=== PATIENT | male | born 1975 | race Caucasian/White ===

== ENCOUNTER 2017-02-14 18:13 | Observation (INO) | payer BC ==
[~2017-02-14] VITALS: Ht 170.2 cm; Wt 70.6 kg
[~2017-02-14 18:13] MED LIST: FLON0.053; MINO50TA PO; PROM25SU8 PO
[2017-02-14 18:45] VITALS: BP 130/86; PULSE 72; RESP 16; TEMP 98.3; O2SAT 99
[2017-02-14] MEDS ORDERED: MORPHINE SULFATE 4 MG/ML INJ IV PUSH ONE ×2 (19:00→20:45)
[2017-02-14] MEDS ORDERED: ONDANSETRON HCL 4 MG/2 ML VIAL IV PUSH ONE (19:00)
--- NOTE | 2017-02-14 19:00 | PD ---
HPI . Low back pain Chief Complaint: Fall Time Seen by Provider: 18:50 Travel History International Travel<30 days: No Contact w/Intl Traveler<30days: No History of Present Illness HPI This patient presents by EVAC status post a fall. He was helping someone move a refrigerator. He was walking backwards and inadvertently got his heel caught on the threshold of the door. This caused him to fall backwards. He had the immediate onset of low back pain. He denies any numbness or tingling of his lower extremities. The pain is severe. It has been constant since the injury. He denies neck pain but is complaining with some tingling in the left fourth and fifth fingers. Pain seems to be exacerbated by the backboard. PFSH Past Medical History Diminished Hearing: No Integumentary: Yes (SCALP ISSUES) Social History Alcohol Use: Yes (occasional) Tobacco Use: No Substance Use: No Allergies-Medications (Allergen,Severity, Reaction): Coded Allergies: No Known Allergies (Verified , 03/04/12) Reported Meds & Prescriptions Reported Meds & Active Scripts Active Phenergan (Promethazine HCl) 25 Mg Tab 25 Mg PO Q6HPRN FOR NAUSEA/VOMITING Reported Minocycline Hcl (Minocycline HCl) 50 Mg Tab 50 Mg PO DIRECTED Flonase (Fluticasone Propionate) 0.05 % Naspr 2 Spr NA DAILY 2 SPRAYS EACH NOSTRIL Review of Systems Except as stated in HPI: all other systems reviewed are Neg Musculoskeletal: Positive: Pain (low back pain) Neurologic: Positive: Paresthesia (fingers of the left hand) Physical Exam Narrative GENERAL: The patient is lucid. He looks like he is uncomfortable. SKIN: Warm and dry. Good color. Intact. HEAD: Normocephalic/atraumatic. EYES: Pupils are equal. Extraocular movements are intact. ENT: Mucous membranes are moist. NECK: Trachea is midline. There is no C-spine tenderness. CARDIOVASCULAR: Regular rate and rhythm. RESPIRATORY: Nonlabored respirations. MUSCULOSKELETAL: Low back tenderness at about the belt line. Step-off palpated. NEUROLOGICAL: He has normal movement, strength and sensation of his legs. He is ANO 3. No cranial nerve deficits. PSYCHIATRIC: Appropriate mood and affect. Data Data Last Documented VS Vital Signs Date Time Temp Pulse Resp B/P (MAP) Pulse Ox O2 Delivery O2 Flow Rate FiO2 02/14/17 18:45 98.3 72 16 130/86 (101) 99 Orders Orders Morphine Inj (Morphine Inj) (02/14/17 19:00) Ondansetron Inj (Zofran Inj) (02/14/17 19:00) ^ Saline Lock (02/14/17 18:53) Ct Cerv Spine W/O Contrast (02/14/17 18:53) Ct Lumb Spine W/O Contrast (02/14/17 18:53) MDM Medical Decision Making Medical Screen Exam Complete: Yes Emergency Medical Condition: Yes Differential Diagnosis Differential diagnosis of back injury includes but is not limited to contusion, muscle strain, ligamentous strain, compression fracture, spinous process fracture Narrative Course This patient presents status post a fall with an injury to his back. I have cleared him from the backboard. I have ordered a CT of his C-spine because of the tingling in his left fingers. I have ordered a CT of his L- spine because of his back pain. He has been given morphine and Zofran for pain. One of the oncoming physicians or APPs will follow-up on his radiographic studies. Diagnosis Primary Impression: Lower back injury Qualified Codes: S39.92XA - Unspecified injury of lower back, initial encounter Patient Instructions: Narcotic given in the ED Condition: Stable Fabiola Oconnor MD Feb 14, 2017 19:00
[2017-02-14] MEDS ORDERED: MINO50CA PO (19:09)
--- NOTE | 2017-02-14 19:55 | RADRPT ---
EXAM DATE/TIME: 02/14/2017 19:11 [facility] COMPARISON: No previous studies available for comparison. INDICATIONS : Trauma, fall. Neck pain RADIATION DOSE: 28.09 CTDIvol (mGy) MEDICAL HISTORY : None SURGICAL HISTORY : None. ENCOUNTER: Initial ACUITY: 1 day PAIN SCALE: 10/10 LOCATION: neck TECHNIQUE: Volumetric scanning of the cervical spine was performed. Multiplanar reconstructions in the sagittal, coronal and oblique axial planes were performed. Using automated exposure control and adjustment o f the mA and/or kV according to patient size, radiation dose was kept as low as reasonably achievable to obtain optimal diagnostic quality images. DICOM format image data is available electronically f or review and comparison. FINDINGS: VERTEBRAE: Normal vertebral body height. ALIGNMENT: No evidence of subluxation. C2-C3: The bony spinal canal is normal in size. No evidence of disc bulge or herniation. The neural forami na are bilaterally patent. C3-C4: A minimal broad based disc bulge. No central canal stenosis or abutment of the cord. Neural foramina are patent bilaterally. C4-C5: A minimal central bulge. No abutment of the cord or central canal stenosis. Neural foramina are paten t bilaterally. C5-C6: The bony spinal canal is normal in size. No evidence of disc bulge or herniation. The neural forami na are bilaterally patent. C6-C7: The bony spinal canal is normal in size. No evidence of disc bulge or herniation. The neural forami na are bilaterally patent. C7-T1: The bony spinal canal is normal in size. No evidence of disc bulge or herniation. The neural forami na are bilaterally patent. CONCLUSION: 1. No fracture or dislocation. 2. Mild degenerative changes. Shon Amanda Jr., MD on February 14, 2017 at 19:52 Board Certified Radiologist. This report was verified electronically.
--- NOTE | 2017-02-14 19:59 | RADRPT ---
EXAM DATE/TIME: 02/14/2017 19:14 [facility] COMPARISON: No previous studies available for comparison. INDICATIONS : Trauma, fall. Lower back pain. RADIATION DOSE: 25.4 CTDIvol (mGy) MEDICAL HISTORY : None SURGICAL HISTORY : None. ENCOUNTER: Initial ACUITY: 1 day PAIN SCALE: 10/10 LOCATION: Lumbar TECHNIQUE: Volumetric scanning of the lumbar spine was performed. Multiplanar reconstructions in the sagittal, coronal and oblique axial planes were performed. Using automated exposure control and adjustment of the mA and/or kV according to patient size, radiation dose was kept as low as reasonably achievable t o obtain optimal diagnostic quality images. DICOM format image data is available electronically for review and comparison. FINDINGS: VERTEBRAE: There is an acute superior endplate compression deformity involving L4. There is 50% loss of height w ith no minimal retropulsion of the posterior cortical margin. The retropulsion measures 3-4 mm. No in volvement of the pedicles observed. The inferior endplate appears intact. Remaining vertebral body he ights are maintained. ALIGNMENT: No evidence of subluxation. T12-L1: The thecal sac has a normal diameter. No evidence of disc bulge or protrusion. The neural foramina are patent bilaterally. L1-L2: The thecal sac has a normal diameter. No evidence of disc bulge or protrusion. The neural foramina are patent bilaterally. L2-L3: The thecal sac has a normal diameter. No evidence of disc bulge or protrusion. The neural foramina are patent bilaterally. L3-L4: There is a broad-based disc bulge eccentric to the right which narrows the right lateral recess. Cent ral canal is minimally narrowed. Neural foramina are patent bilaterally. L4-L5: There is a broad-based disc bulge eccentric to the left and narrows the left lateral recess. Right la teral recess, central canal, and neural foramen are patent. Mild ligamentum flavum hypertrophy of the facets. L5-S1: There is a mild broad-based disc bulge. Central canal and lateral recesses, and neural foramen are pa tent. CONCLUSION: 1. Acute compression fracture involving the superior endplate of L4 with minimal retropulsion. No ped icle involvement. Shon Amanda Jr., MD on February 14, 2017 at 19:55 Board Certified Radiologist. This report was verified electronically.
[2017-02-14 20:27] VITALS: BP 116/77; PULSE 89; RESP 16; O2SAT 99
--- NOTE | 2017-02-14 21:08 | PD ---
Physical Exam Date Seen by Provider: Feb 14, 2017 Time Seen by Provider: 21:03 Data Data Last Documented VS Vital Signs Date Time Temp Pulse Resp B/P (MAP) Pulse Ox O2 Delivery O2 Flow Rate FiO2 02/14/17 20:27 89 16 116/77 (90) 99 Room Air 02/14/17 18:45 98.3 Orders Orders Morphine Inj (Morphine Inj) (02/14/17 19:00) Ondansetron Inj (Zofran Inj) (02/14/17 19:00) ^ Saline Lock (02/14/17 18:53) Ct Cerv Spine W/O Contrast (02/14/17 18:53) Ct Lumb Spine W/O Contrast (02/14/17 18:53) Complete Blood Count With Diff (02/14/17 20:42) Comprehensive Metabolic Panel (02/14/17 20:42) Prothrombin Time / Inr (Pt) (02/14/17 20:42) Morphine Inj (Morphine Inj) (02/14/17 20:45) Admit Order (Ed Use Only) (02/14/17 ) Labs Laboratory Tests Test 02/14/17 20:25 White Blood Count 13.6 TH/MM3 Red Blood Count 4.71 MIL/MM3 Hemoglobin 15.2 GM/DL Hematocrit 43.1 % Mean Corpuscular Volume 91.5 FL Mean Corpuscular Hemoglobin 32.3 PG Mean Corpuscular Hemoglobin Concent 35.3 % Red Cell Distribution Width 13.6 % Platelet Count 163 TH/MM3 Mean Platelet Volume 7.2 FL Neutrophils (%) (Auto) 89.4 % Lymphocytes (%) (Auto) 6.2 % Monocytes (%) (Auto) 4.2 % Eosinophils (%) (Auto) 0.1 % Basophils (%) (Auto) 0.1 % Neutrophils # (Auto) 12.1 TH/MM3 Lymphocytes # (Auto) 0.8 TH/MM3 Monocytes # (Auto) 0.6 TH/MM3 Eosinophils # (Auto) 0.0 TH/MM3 Basophils # (Auto) 0.0 TH/MM3 CBC Comment DIFF FINAL Differential Comment Prothrombin Time 10.8 SEC Prothromb Time International Ratio 1.0 RATIO Blood Urea Nitrogen 25 MG/DL Creatinine 0.99 MG/DL Random Glucose 99 MG/DL Total Protein 6.8 GM/DL Albumin 4.3 GM/DL Calcium Level 9.0 MG/DL Alkaline Phosphatase 76 U/L Aspartate Amino Transf (AST/SGOT) 31 U/L Alanine Aminotransferase (ALT/SGPT) 33 U/L Total Bilirubin 1.0 MG/DL Sodium Level 138 MEQ/L Potassium Level 3.9 MEQ/L Chloride Level 103 MEQ/L Carbon Dioxide Level 25.6 MEQ/L Anion Gap 9 MEQ/L Estimat Glomerular Filtration Rate 84 ML/MIN MDM Supervised Visit with EDWARDO: No Interpretation(s) L4 compression superior end plate fracture mild retropulsion of posterior fragment into the canal Differential Diagnosis Back contusion versus fracture versus transverse fracture versus vertebral body fracture versus muscle strain versus muscle spasm Narrative Course Pt signed ouit to Me by Dr Oconnor I spoke to Dr HARRIS after I spoke to Dr Nieto he will consult and STEVEN accepts admission , CT shows a L4 compression fracture with Mild retropulsion into the canal but no symptoms at this time of cord compression. no leg weakness no bowel or bladder incontinence Diagnosis Primary Impression: Fracture of spine, lumbar, without spinal cord injury, closed Qualified Codes: S32.009A - Unspecified fracture of unspecified lumbar vertebra, initial encounter for closed fracture Admitting Information Admitting Physician Requests: Admit Patient Instructions: Narcotic given in the ED Scripts Walker with Front Wheels (Walker with Front Wheels) 1 Mis Mis EA .ROUTE DIRECTED, #1 0 Refills Prov: Korina Cartagena 02/15/17 Hydrocodone-Acetaminophen (Vicodin Hp) 10-300 Tab 1 TAB PO Q6H Y for PAIN, #30 TAB 0 Refills Prov: Ludwig Schuster MD 02/15/17 Condition: Stable George Aguero MD Feb 14, 2017 21:08
[2017-02-14] MEDS ORDERED: ONDANSETRON HCL 4 MG/2 ML VIAL IVP PRN (21:15)
[2017-02-14] MEDS ORDERED: SODIUM CHLORIDE 0.9% FLUSH 10 ML FLUSH IV FLUSH PRN (21:15)
[2017-02-14] MEDS ORDERED: NALOXONE HCL 0.4 MG/ML AMP IV PUSH PRN (21:15)
[2017-02-14 21:31] LABS: AUTOMATED NEUTROPHIL # 12.1 TH/MM3 (1.8-7.7); BASOPHIL % 0.1 % (0.0-2.0); EOSINOPHIL % 0.1 % (0.0-4.0); HEMATOCRIT 43.1 % (39.0-51.0); HEMO FLAGS DIFF FINAL; LYMPH % 6.2 % (9.0-44.0); LYMPHOCYTE # 0.8 TH/MM3 (1.0-4.8); MEAN CELL VOLUME 91.5 FL (80.0-100.0); MEAN CORPUSCULAR HEMOGLOBIN 32.3 PG (27.0-34.0); MEAN CORPUSCULAR HGB CONC 35.3 % (32.0-36.0); MONO % 4.2 % (0.0-8.0); NEUT % 89.4 % (16.0-70.0); PLATELET COUNT 163 TH/MM3 (150-450); RED BLOOD COUNT 4.71 MIL/MM3 (4.50-5.90); RED CELL DISTRIBUTION WIDTH 13.6 % (11.6-17.2); WHITE BLOOD COUNT 13.6 TH/MM3 (4.0-11.0)
[2017-02-14 21:32] LABS: PROTHROMBIN TIME - PATIENT 10.8 SEC (9.8-11.6)
[2017-02-14 21:41] LABS: ANION GAP 9 MEQ/L (5-15); AST (GOT) 31 U/L (15-37); BICARBONATE 25.6 MEQ/L (21.0-32.0); BLOOD UREA NITROGEN 25 MG/DL (7-18); CHLORIDE 103 MEQ/L (98-107); GLOMERULAR FILTRATION RATE 84 ML/MIN (>89); POTASSIUM 3.9 MEQ/L (3.5-5.1); SODIUM (NA) 138 MEQ/L (136-145)
[2017-02-14 21:45] LABS: ALKALINE PHOSPHATASE 76 U/L (45-117); ALT (GPT) 33 U/L (12-78)
[2017-02-14] MEDS: MORPHINE SULFATE 2 MG/ML INJ IV PUSH PRN (23:08)
[2017-02-14 23:17] VITALS: BP 112/65; PULSE 94; RESP 19; TEMP 98.6; O2SAT 97
[2017-02-15] VITALS (11 sets, daily range): BP systolic 108–123; BP diastolic 58–74; PULSE 68–101; RESP 14–18; TEMP 98.1–99.1; O2SAT 94–98
[2017-02-15] MEDS: MORPHINE SULFATE 2 MG/ML INJ IV PUSH PRN ×5 (02:01→23:55)
[2017-02-15] MEDS ORDERED: SENNOSIDES 8.6 MG TAB PO PRN (06:00)
[2017-02-15] MEDS ORDERED: BISACODYL 10 MG SUPP RECTAL PRN (06:00)
[2017-02-15] MEDS ORDERED: MAGNESIUM HYDROXIDE SUSP 30 ML CUP PO PRN (06:00)
[2017-02-15] MEDS ORDERED: LACTULOSE SYRUP 20 GM/30 ML CUP PO PRN (06:00)
[2017-02-15] MEDS ORDERED: ONDANSETRON HCL 4 MG/2 ML VIAL IVP PRN (06:00)
[2017-02-15] MEDS ORDERED: ACETAMINOPHEN 325 MG TAB PO PRN ×2 (06:00)
[2017-02-15 06:53] LABS: AUTOMATED NEUTROPHIL # 5.6 TH/MM3 (1.8-7.7); BASOPHIL % 0.1 % (0.0-2.0); EOSINOPHIL % 0.2 % (0.0-4.0); HEMATOCRIT 38.9 % (39.0-51.0); LYMPH % 17.9 % (9.0-44.0); LYMPHOCYTE # 1.3 TH/MM3 (1.0-4.8); MEAN CELL VOLUME 91.7 FL (80.0-100.0); MEAN CORPUSCULAR HEMOGLOBIN 33.2 PG (27.0-34.0); MONO % 7.3 % (0.0-8.0); NEUT % 74.5 % (16.0-70.0); PLATELET COUNT 161 TH/MM3 (150-450); RED BLOOD COUNT 4.24 MIL/MM3 (4.50-5.90); RED CELL DISTRIBUTION WIDTH 13.7 % (11.6-17.2); WHITE BLOOD COUNT 7.5 TH/MM3 (4.0-11.0)
[2017-02-15 07:02] LABS: HEMO FLAGS AUTO DIFF; MEAN CORPUSCULAR HGB CONC 36.2 % (32.0-36.0)
[2017-02-15 07:21] LABS: BICARBONATE 27.5 MEQ/L (21.0-32.0); POTASSIUM 3.9 MEQ/L (3.5-5.1)
[2017-02-15] MEDS: DOCUSATE SODIUM 50 MG/SENNA 8.6 MG TAB PO SCH ×2 (08:14→21:00)
[2017-02-15] MEDS: SODIUM CHLOR 0.9% 1000 ML INJ 1,000 ML IV SCH ×2 (08:18→20:06)
[2017-02-15 08:23] LABS: SCAN/DIFF AUTO DIFF CONFIRMED
[2017-02-15] MEDS: SODIUM CHLORIDE 0.9% FLUSH 10 ML FLUSH IV FLUSH SCH ×2 (09:00→21:00)
--- NOTE | 2017-02-15 09:12 | PD.CONS ---
History of Present Illness Service Neurosurgery Consult Requested By Medicine service Reason for Consult L4 fracture Primary Care Physician Trish King MD Diagnoses: History of Present Illness 5-year-old male states that he was helping move a refrigerator on 02/14/2017 when he fell backwards. She experienced immediate rather severe low back pain. He did not notice any pain digits or numbness in the lower extremities that did have some discomfort across the right and left groin-upper thigh region. He subsequently has noticed numbness and paresthesias in the fourth and fifth digits of the left hand which are a little better today. He has had mild problems with urinary hesitancy but no definite incontinence. No significant neck or thoracic region pain. He continues to have significant central low back. He has not tried to ambulate since initial injury. Review of Systems Constitutional: DENIES: Fever Eyes: DENIES: Blurred vision Ears, nose, mouth, throat: DENIES: Vertigo Respiratory: DENIES: Shortness of breath Cardiovascular: DENIES: Chest pain Gastrointestinal: DENIES: Abdominal pain, Nausea Musculoskeletal: COMPLAINS OF: Back pain Hematologic/lymphatic: DENIES: Bruising Neurologic: DENIES: Headache Psychiatric: DENIES: Confusion Past Family Social History Allergies: Coded Allergies: No Known Allergies (Verified Allergy, Unknown, 02/14/17) Past Medical History No history of significant cardiac, pulmonary, gastrointestinal disease, diabetes Past Surgical History No major surgeries reported Reported Medications Reported Meds & Active Scripts Active Reported Minocycline (Minocycline HCl) 50 Mg Cap 50 Mg PO BID Social History Does not smoke cigarettes or drink significant amount of alcohol Physical Exam Vital Signs Vital Signs Date Time Temp Pulse Resp B/P (MAP) Pulse Ox O2 Delivery O2 Flow Rate FiO2 02/15/17 05:00 18 02/15/17 03:29 98.1 101 18 108/58 (75) 95 02/14/17 23:17 98.6 94 19 112/65 (81) 97 02/14/17 22:05 02/14/17 20:27 89 16 116/77 (90) 99 Room Air 02/14/17 18:45 98.3 72 16 130/86 (101) 99 Physical Exam GENERAL: This is a well-nourished, well-developed patient, in no apparent distress. SKIN: No rashes, ecchymoses or lesions. Cool and dry. HEAD: Atraumatic. Normocephalic. No temporal or scalp tenderness. EYES: Sclerae are clear and nonicteric ENT: No facial edema or ecchymosis NECK: No significant neck tenderness or limited range of motion CARDIOVASCULAR: Heart rate regular RESPIRATORY: Clear and nonlabored GASTROINTESTINAL: Abdomen soft, non-tender MUSCULOSKELETAL: No extremity edema or cyanosis NEUROLOGICAL: Awake and alert oriented conversant and appropriate Speech is clear Follows commands well Recent and remote memory are intact Reasonable judgment and insight No evidence of anxiety or depression Extraocular movements intact Facial motor movements symmetric Sensation moderately diminished light touch fourth and fifth digits left hand Strength within normal limits throughout the upper and lower extremity major flexion and extension groups, hand intrinsics, abductor digiti quinti minimi, inversion and eversion of the foot Narinder's response absent bilateral No ankle clonus Plantar responses are mildly flexor Laboratory Laboratory Tests Test 02/14/17 20:25 02/15/17 05:43 White Blood Count 13.6 7.5 Red Blood Count 4.71 4.24 Hemoglobin 15.2 14.1 Hematocrit 43.1 38.9 Mean Corpuscular Volume 91.5 91.7 Mean Corpuscular Hemoglobin 32.3 33.2 Mean Corpuscular Hemoglobin Concent 35.3 36.2 Red Cell Distribution Width 13.6 13.7 Platelet Count 163 161 Mean Platelet Volume 7.2 7.0 Neutrophils (%) (Auto) 89.4 74.5 Lymphocytes (%) (Auto) 6.2 17.9 Monocytes (%) (Auto) 4.2 7.3 Eosinophils (%) (Auto) 0.1 0.2 Basophils (%) (Auto) 0.1 0.1 Neutrophils # (Auto) 12.1 5.6 Lymphocytes # (Auto) 0.8 1.3 Monocytes # (Auto) 0.6 0.5 Eosinophils # (Auto) 0.0 0.0 Basophils # (Auto) 0.0 0.0 CBC Comment DIFF FINAL AUTO DIFF Differential Comment AUTO DIFF CONFIRMED Prothrombin Time 10.8 Prothromb Time International Ratio 1.0 Blood Urea Nitrogen 25 20 Creatinine 0.99 1.09 Random Glucose 99 110 Total Protein 6.8 Albumin 4.3 Calcium Level 9.0 8.7 Alkaline Phosphatase 76 Aspartate Amino Transf (AST/SGOT) 31 Alanine Aminotransferase (ALT/SGPT) 33 Total Bilirubin 1.0 Sodium Level 138 142 Potassium Level 3.9 3.9 Chloride Level 103 105 Carbon Dioxide Level 25.6 27.5 Anion Gap 9 10 Estimat Glomerular Filtration Rate 84 75 Result Diagram: 02/15/17 0543 02/15/17 0543 Imaging 02/14/2017 cervical and lumbar spine images are not reviewed. There is an approximately 30% central L4 compression fracture with 4 mm retropulsion of the central posterior superior L4 vertebral body with mild canal compromise. No significant kyphotic curvature. The posterior elements appear intact No definite disruption of the facets or interspinous ligament or ligamentum flavum. There may be disruption of the annulus or posterior longitudinal ligament, which may be better evaluated on MRI. Although there is a burst-type pattern with disruption of the central anterior and posterior superior vertebral body, the lateral borders of the mid to posterior vertebral body are intact, and there is no disruption of the pedicle or base of the pedicle at the vertebral body. There is no widening of the pedicles on coronal image. Lumbar Spine CT 02/14/171852 Signed Impressions: Service Date/Time: Tuesday, February 14, 2017 19:14 - CONCLUSION: 1. Acute compression fracture involving the superior endplate of L4 with minimal retropulsion. No pedicle involvement. Shon Amanda Jr., MD Cervical Spine CT 02/14/171852 Signed Impressions: Service Date/Time: Tuesday, February 14, 2017 19:11 - CONCLUSION: 1. No fracture or dislocation. 2. Mild degenerative changes. Shon Amanda Jr., MD Assessment and Plan Assessment and Plan Impression: 1. L4 compression fracture with mild retropulsion. No significant kyphotic deformity. No focal neurologic deficit. No definite involvement of the posterior ligamentous complex. Although there is a burst-type pattern with disruption of the central anterior and posterior superior vertebral body, the lateral borders of the mid to posterior vertebral body are intact, and there is no disruption of the pedicle or base of the pedicle at the vertebral body. There is no widening of the pedicles on coronal image. This fracture appears to represent a TL ICS classification 2, however an MRI will be obtained to more accurately determine the integrity of the annulus and posterior ligamentous complex. 2. Left hand sensory loss. Probable mild ulnar neuropathy. Assessment possible C8 radiculopathy. Plan: Findings were discussed in detail with the patient and his in the emergency room. Options of conservative treatment versus surgical intervention. The L4 fracture have been discussed along with gross incontinence and prognosis of each. An MRI of the lumbar spine will be obtained to better assess the annular and facet-ligament integrity, as well as to assess for possible epidural hematoma which is questionably seen on CT scan imaging. An MRI of the cervical spine will also be obtained to assess for possible left C8 nerve compression. He may be mobilized in a brace. 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 I advised him that he will need to avoid reaching bending and heavy lifting for the next 3 months regardless of treatment. The risk of progression of the fracture has been discussed with the patient. He will be placed on muscle relaxant and pain medication. He may benefit from a short course of Toradol , however this will be held until MRI completion to assess for epidural hematoma. If the MRI does not reveal significant disruption at the posterior ligamentous complex, then he should be able to be managed with conservative treatment in a brace. However his desire to return back to work as soon as possible may place him at increased risk for progression of the fracture and may warrant at least temporary internal fixation. Hakan Nieto MD Feb 15, 2017 09:12
[2017-02-15] MEDS ORDERED: HYDR-3115 PO (11:00)
[2017-02-15] MEDS ORDERED: WALKER WHEELS/F1 MIS (11:39)
[2017-02-15] MEDS: ACETAMINOPHEN/HYDROcodone 325 MG/10 MG TAB PO PRN ×3 (11:40→21:09)
--- NOTE | 2017-02-15 11:41 | HHI.HP ---
HPI Service [facility] Hospitalists Primary Care Physician Trish King MD Admission Diagnosis lumbral fracture L4 Diagnoses: Chief Complaint: Back pain s/p fall Travel History International Travel<30 Days: No Contact w/Intl Traveler <30 Da: No Traveled to Known Affected Are: No History of Present Illness Written by Korina Cartagena, acting as scribe for Dr. Schuster on 02/15/17 at 11: 27. This note was transcribed by scribe Korina Cartagena. I, Dr. Ludwig Schuster personally performed the history, physical exam, and medical decision making; and confirmed the accuracy of the information in the transcribed note. Authenticated by Dr. Ludwig Schuster on 02/15/17 at 11:42. This is a 41-year-old male without any significant past medical history who presents to [facility] ED with complaints of severe back pain 1 day. Patient reports he was walking backwards moving a washer when he tripped and fell landing on his buttocks onto the driveway. He immediately he began experiencing a severe sharp 20 out of 10 constant central back pain. He denies any head or neck injury. He does endorse improving numbness in the fourth and fifth digits of the left hand since the fall. He denies any numbness or tingling in the bilateral lower extremities. He also states that he's had urinary hesitancy and loss of sensation with urination but denies any definite incontinence. In the ED, CT lumbar spine was obtained which revealed acute compression fracture involving the superior endplate of L4 with minimal retropulsion. CT of the cervical spine was obtained which showed no fracture dislocation. Patient has already been evaluated by Dr. Nieto of neurosurgery who was ordered MRIs of both cervical and lumbar spine has discussed the possibility of surgical intervention versus conservative management. Review of Systems Except as stated in HPI: all other systems reviewed are Neg Past Family Social History Past Medical History Patient denies any previous PMHX Past Surgical History Nasal surgery Reported Medications Minocycline (Minocycline HCl) 50 Mg Cap 50 Mg PO BID Allergies: Coded Allergies: No Known Allergies (Verified Allergy, Unknown, 02/14/17) Active Ordered Medications Current Medications Medications (Trade) Dose Ordered Sig/Jackson Route Start Time Stop Time Status Last Admin (NS Flush) 2 ml UNSCH PRN IV FLUSH 02/14/17 21:15 (NS Flush) 2 ml BID IV FLUSH 02/15/17 09:00 (Narcan Inj) 0.4 mg UNSCH PRN IV PUSH 02/14/17 21:15 (Morphine Inj) 2 mg Q3H PRN IV PUSH 02/14/17 21:15 02/15/17 08:14 Sodium Chloride 1,000 ml @ 70 mls/hr [id number] IV 02/15/17 05:48 02/15/17 08:18 (Tylenol) 650 mg Q4H PRN PO 02/15/17 06:00 (Zofran Inj) 4 mg Q6H PRN IVP 02/15/17 06:00 (Tylenol) 650 mg Q6H PRN PO 02/15/17 06:00 ([place] 5-325 Mg) 1 tab Q4H PRN PO 02/15/17 06:00 ([place] 10-325 Mg) 1 tab Q4H PRN PO 02/15/17 06:00 (Mariann-Colace) 1 tab BID PO 02/15/17 09:00 02/15/17 08:14 (Milk Of Magnesia Liq) 30 ml Q12H PRN PO 02/15/17 06:00 (Senokot) 17.2 mg Q12H PRN PO 02/15/17 06:00 (Dulcolax Supp) 10 mg DAILY PRN RECTAL 02/15/17 06:00 (Lactulose Liq) 30 ml DAILY PRN PO 02/15/17 06:00 (Robaxin) 500 mg Q8HR PO 02/15/17 14:00 Family History Brother- , PE Father - BLE DVTs Social History Patient denies any tobacco use. Patient reports occasional alcohol use. 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 Physical Exam Vital Signs Vital Signs Date Time Temp Pulse Resp B/P (MAP) Pulse Ox O2 Delivery O2 Flow Rate FiO2 02/15/17 09:01 98.5 85 16 113/72 (86) 95 02/15/17 08:00 88 02/15/17 05:00 18 02/15/17 03:29 98.1 101 18 108/58 (75) 95 02/14/17 23:17 98.6 94 19 112/65 (81) 97 02/14/17 22:05 02/14/17 20:27 89 16 116/77 (90) 99 Room Air 02/14/17 18:45 98.3 72 16 130/86 (101) 99 Physical Exam GENERAL: This is a well-nourished, well-developed patient, in obvious discomfort secondary to back pain. Awake and alert. Family is at the bedside. SKIN: No rashes, ecchymoses or lesions. Cool and dry. HEAD: Atraumatic. Normocephalic. No temporal or scalp tenderness. EYES: Pupils equal round and reactive. Extraocular motions intact. No scleral icterus. No injection or drainage. ENT: Nose without bleeding or purulent drainage. Throat without erythema, tonsillar hypertrophy or exudate. Uvula midline. Airway patent. NECK: Trachea midline. No lymphadenopathy. Supple, nontender, no meningeal signs. CARDIOVASCULAR: Regular rate and rhythm without murmurs, gallops, or rubs. RESPIRATORY: Clear to auscultation. Breath sounds equal bilaterally. No wheezes , rales, or rhonchi. GASTROINTESTINAL: Abdomen soft, non-tender, nondistended. No hepato-splenomegaly , or palpable masses. No guarding. MUSCULOSKELETAL: Extremities without clubbing, cyanosis, or edema. No joint tenderness, effusion, or edema noted. No calf tenderness. NEUROLOGICAL: Awake and alert. Cranial nerves II through XII intact. Motor and sensory grossly within normal limits except for subjective numbness over the 4th and 5th digits of the left hand. Five out of 5 muscle strength in all muscle groups. Normal speech. Laboratory Laboratory Tests Test 02/14/17 20:25 02/15/17 05:43 White Blood Count 13.6 7.5 Red Blood Count 4.71 4.24 Hemoglobin 15.2 14.1 Hematocrit 43.1 38.9 Mean Corpuscular Volume 91.5 91.7 Mean Corpuscular Hemoglobin 32.3 33.2 Mean Corpuscular Hemoglobin Concent 35.3 36.2 Red Cell Distribution Width 13.6 13.7 Platelet Count 163 161 Mean Platelet Volume 7.2 7.0 Neutrophils (%) (Auto) 89.4 74.5 Lymphocytes (%) (Auto) 6.2 17.9 Monocytes (%) (Auto) 4.2 7.3 Eosinophils (%) (Auto) 0.1 0.2 Basophils (%) (Auto) 0.1 0.1 Neutrophils # (Auto) 12.1 5.6 Lymphocytes # (Auto) 0.8 1.3 Monocytes # (Auto) 0.6 0.5 Eosinophils # (Auto) 0.0 0.0 Basophils # (Auto) 0.0 0.0 CBC Comment DIFF FINAL AUTO DIFF Differential Comment AUTO DIFF CONFIRMED Prothrombin Time 10.8 Prothromb Time International Ratio 1.0 Blood Urea Nitrogen 25 20 Creatinine 0.99 1.09 Random Glucose 99 110 Total Protein 6.8 Albumin 4.3 Calcium Level 9.0 8.7 Alkaline Phosphatase 76 Aspartate Amino Transf (AST/SGOT) 31 Alanine Aminotransferase (ALT/SGPT) 33 Total Bilirubin 1.0 Sodium Level 138 142 Potassium Level 3.9 3.9 Chloride Level 103 105 Carbon Dioxide Level 25.6 27.5 Anion Gap 9 10 Estimat Glomerular Filtration Rate 84 75 25-Hydroxy Vitamin D Total 28.9 Result Diagram: 02/15/1743 02/15/17542 Imaging Last Impressions Lumbar Spine CT 02/14/171852 Signed Impressions: Service Date/Time: Tuesday, February 14, 2017 19:14 - CONCLUSION: 1. Acute compression fracture involving the superior endplate of L4 with minimal retropulsion. No pedicle involvement. Shon Amanda Jr., MD Cervical Spine CT 02/14/171852 Signed Impressions: Service Date/Time: Tuesday, February 14, 2017 19:11 - CONCLUSION: 1. No fracture or dislocation. 2. Mild degenerative changes. Shon Amanda Jr., MD Caprini VTE Risk Assessment Caprini VTE Risk Assessment: No/Low Risk (score <= 1) Caprini Risk Assessment Model Point Value = 1 Point Value = 2 Point Value = 3 Point Value = 5 Age 41-60 Minor surgery BMI > 25 kg/m2 Swollen legs Varicose veins or History of unexplained or recurrent spontaneous Oral contraceptives or hormone replacement Sepsis (< 1 month) Serious lung disease, including pneumonia (< 1 month) Abnormal pulmonary function Acute myocardial infarction Congestive heart failure (< 1 month) History of inflammatory bowel disease Medical patient at bed rest Age 61-74 Arthroscopic surgery Major open surgery (> 45 min) Laparoscopic surgery (> 45 min) Malignancy Confined to bed (> 72 hours) Immobilizing plaster cast Central venous access Age >= 75 History of VTE Family history of VTE Factor V Leiden Prothrombin [id number] Lupus anticoagulant Anticardiolipin antibodies Elevated serum homocysteine Heparin-induced thrombocytopenia Other congenital or acquired thrombophilia Stroke (< 1 month) Elective arthroplasty Hip, pelvis, or leg fracture Acute spinal cord injury (< 1 month) Prophylaxis Regimen Total Risk Factor Score Risk Level Prophylaxis Regimen 0-1 Low Early ambulation 2 Moderate Order ONE of the following: *Sequential Compression Device (SCD) *Heparin 5000 units SQ BID 3-4 Higher Order ONE of the following medications: *Heparin 5000 units SQ TID *Enoxaparin/Lovenox 40 mg SQ daily (WT < 150 kg, CrCl > 30 mL/min) *Enoxaparin/Lovenox 30 mg SQ daily (WT < 150 kg, CrCl > 10-29 mL/min) *Enoxaparin/Lovenox 30 mg SQ BID (WT < 150 kg, CrCl > 30 mL/min) AND/OR *Sequential Compression Device (SCD) 5 or more Highest Order ONE of the following medications: *Heparin 5000 units SQ TID (Preferred with Epidurals) *Enoxaparin/Lovenox 40 mg SQ daily (WT < 150 kg, CrCl > 30 mL/min) *Enoxaparin/Lovenox 30 mg SQ daily (WT < 150 kg, CrCl > 10-29 mL/min) *Enoxaparin/Lovenox 30 mg SQ BID (WT < 150 kg, CrCl > 30 mL/min) AND *Sequential Compression Device (SCD) Assessment and Plan Problem List: (1) Lower back injury ICD Code: S39.92XA - Unspecified injury of lower back, initial encounter Status: Acute (2) Fracture of spine, lumbar, without spinal cord injury, closed ICD Code: S32.009A - Unspecified fracture of unspecified lumbar vertebra, initial encounter for closed fracture Status: Acute Assessment and Plan 41-year-old male without any significant past medical history who presents to [facility] ED with complaints of severe back pain 1 day. Severe back pain status post a fall with resultant L4 compression fracture - Patient evaluated by Dr. Nieto of neurosurgery, appreciate recommendations. MRI of the cervical and lumbar spine ordered and pending. TLSO ordered and needed for mobilization. - Pain management including Lortab and IV morphine with bowel regimen - Robaxin 500 mg by mouth every 8 for muscle spasms - PT eval/tx after TLSO delivered - obtain vitamin D level - Per neurosurgery recommendations, avoid reaching, bending and heavy lifting for 3 months. Possible left C8 radiculopathy - As stated above - Monitor for improvement Leukocytosis - Suspect reactive - Resolved DVT prophylaxis - bilateral SCD/RANDAL hose - Chemoprophylaxis contraindicated pending MRI results to rule out possible epidural hematoma Discussed Condition With Patient, nursing staff, family Problem Qualifiers (1) Lower back injury: Qualified Codes: S39.92XA - Unspecified injury of lower back, initial encounter Korina Cartagena Feb 15, 2017 11:41 Ludwig Schuster MD Feb 15, 2017 11:43
--- NOTE | 2017-02-15 12:27 | RADRPT ---
EXAM DATE/TIME: 02/15/2017 10:51 [facility] COMPARISON: CT CERVICAL SPINE W/O CONTRAST, February 14, 2017, 19:11. INDICATIONS : Fracture. Left C8 distribution radiculopathy. MEDICAL HISTORY : None. SURGICAL HISTORY : Deviated septum repair. ENCOUNTER: Initial ACUITY: 1 day PAIN SCORE: 5/10 LOCATION: Back. TECHNIQUE: Multiplanar, multisequence MRI examination of the cervical spine was performed. FINDINGS: VERTEBRAE: Normal vertebral body height. Homogeneous marrow signal. ALIGNMENT: No evidence of subluxation. CORD: Normal configuration and signal. POST FOSSA: The cerebellar tonsils are normal in position. C2-C3: The thecal sac has a normal configuration. There is no evidence of disc herniation or spinal canal s tenosis. The neural foramina are patent bilaterally. C3-C4: The disc is desiccated but otherwise normal. No foraminal or spinal stenosis. C4-C5: The disc is desiccated. No significant loss of height. There is bulging of the annulus and a tiny lef t paracentral annular fissure. No foraminal or spinal stenosis. C5-C6: The disc is desiccated. No significant loss of height. There is bulging of the annulus and a central to left paracentral annular fissure. No foraminal or spinal stenosis. C6-C7: The disc is desiccated and has slight loss of height. There is a small, broad posterior disc protrusi on and a right paracentral annular fissure. There is mild effacement of the anterior aspect of the th ecal sac. No cord compression or cord signal abnormality. There is minimal foraminal encroachment on the right but none on the left. C7-T1: The thecal sac has a normal configuration. There is no evidence of disc herniation or spinal canal s tenosis. The neural foramina are patent bilaterally. CONCLUSION: 1. Very mild cervical spine degenerative changes as above. 2. No significant foraminal or spinal stenosis at any level. The C7/T1 level is entirely normal. 3. Small annular fissures of the C4/C5, C5/C6 and C6/C7 discs. Alhaji Moffett MD on February 15, 2017 at 12:18 Board Certified Radiologist. This report was verified electronically.
--- NOTE | 2017-02-15 12:33 | RADRPT ---
EXAM DATE/TIME: 02/15/2017 10:51 [facility] COMPARISON: CT LUMBAR SPINE W/O CONTRAST, February 14, 2017, 19:14. INDICATIONS : Fracture. MEDICAL HISTORY : None. SURGICAL HISTORY : Corrected deviated septum. ENCOUNTER: Initial ACUITY: 1 day PAIN SCORE: 7/10 LOCATION: Back. TECHNIQUE: Multiplanar multisequence MRI of the lumbar spine was performed without contrast. FINDINGS: The most caudal appearing lumbar vertebra is numbered as L5. VERTEBRAE: Acute appearing moderate severity superior endplate compression fracture of L4. A couple millimeters of retropulsion of the posterior/superior corner of the L4 vertebral body contributing to mild spinal stenosis and bilateral L3/L4 foraminal stenosis. CONUS: Normal level and configuration. T12-L1: The thecal sac has a normal diameter. No evidence of disc bulge or protrusion. The neural foramina are patent bilaterally. L1-L2: The thecal sac has a normal diameter. No evidence of disc bulge or protrusion. The neural foramina are patent bilaterally. L2-L3: The thecal sac has a normal diameter. No evidence of disc bulge or protrusion. The neural foramina are patent bilaterally. L3-L4: The disc is within normal limits but there is an acute superior endplate fracture of L4 with associat ed mild spinal and bilateral foraminal stenosis. L4-L5: The disc is desiccated and has mild loss of height. Small, broad/diffuse disc protrusion and mild ollie ateral facet osteoarthritis present. No significant spinal stenosis. There is mild left foraminal michael nosis. L5-S1: The disc is desiccated and has mild loss of height. There is a small moderate focal right paracentral disc protrusion contacting the right S1 nerve root within the lateral recess, series 12 image 19. No foraminal stenosis. CONCLUSION: 1. Moderate severity acute L4 compression fracture with slight retropulsion. Associated mild fracture -associated spinal and bilateral L3/L4 foraminal stenosis without evidence of nerve root impingement. 2. Small, broad and probably nonacute L4/L5 disc protrusion with mild left foraminal stenosis. 3. Focal, probably nonacute right paracentral L4/L5 disc protrusion and appears to be impinging on th e transiting right S1 nerve root within the subarticular recess. Alhaji Moffett MD on February 15, 2017 at 12:26 Board Certified Radiologist. This report was verified electronically.
[2017-02-15] MEDS: METHOCARBAMOL 500 MG TAB PO SCH ×2 (14:19→21:08)
[2017-02-16] VITALS (8 sets, daily range): BP systolic 113–128; BP diastolic 75–77; PULSE 76–86; RESP 16–18; TEMP 98.3–99; O2SAT 94–98
[2017-02-16] MEDS: ACETAMINOPHEN/HYDROcodone 325 MG/10 MG TAB PO PRN (05:03)
[2017-02-16] MEDS: METHOCARBAMOL 500 MG TAB PO SCH ×3 (05:03→22:28)
[2017-02-16] MEDS: SODIUM CHLOR 0.9% 1000 ML INJ 1,000 ML IV SCH ×2 (09:00→22:29)
[2017-02-16] MEDS: ACETAMINOPHEN/HYDROcodone 325 MG/5 MG TAB PO PRN ×3 (09:08→17:08)
[2017-02-16] MEDS: SODIUM CHLORIDE 0.9% FLUSH 10 ML FLUSH IV FLUSH SCH ×2 (09:08→22:29)
[2017-02-16] MEDS: DOCUSATE SODIUM 50 MG/SENNA 8.6 MG TAB PO SCH ×2 (09:09→22:28)
--- NOTE | 2017-02-16 10:31 | HHI.PR ---
Subjective Remarks Follow-up back pain. States pain meds helping. He still undecided if he wants surgery. He has not been out of bed waiting for physical therapy. Discussed with RN Objective Vitals Vital Signs Date Time Temp Pulse Resp B/P (MAP) Pulse Ox O2 Delivery O2 Flow Rate FiO2 02/16/17 10:12 16 02/16/17 08:30 97 21 02/16/17 07:28 98.4 86 18 118/77 (91) 94 02/16/17 03:41 98.9 76 18 119/76 (90) 98 02/16/17 00:01 85 02/15/17 23:26 99.1 85 18 119/73 (88) 94 02/15/17 20:59 98 21 02/15/17 20:42 98.5 83 18 112/74 (87) 96 02/15/17 20:04 73 02/15/17 18:47 97 02/15/17 18:14 18 02/15/17 16:16 98.2 68 14 111/70 (84) 97 02/15/17 15:30 68 02/15/17 11:41 98.2 91 16 123/70 (87) 97 Result Diagram: 02/15/17 0543 02/15/17 0543 Imaging Last Impressions Lumbar Spine MRI 02/15/17 0000 Signed Impressions: Service Date/Time: February 10:51 - CONCLUSION: 1. Moderate severity acute L4 compression fracture with slight retropulsion. Associated mild fracture-associated spinal and bilateral L3/L4 foraminal stenosis without evidence of nerve root impingement. 2. Small, broad and probably nonacute L4/ L5 disc protrusion with mild left foraminal stenosis. 3. Focal, probably nonacute right paracentral L4/L5 disc protrusion and appears to be impinging on the transiting right S1 nerve root within the subarticular recess. Alhaji Moffett MD Cervical Spine MRI 02/15/17 0000 Signed Impressions: Service Date/Time: February 10:51 - CONCLUSION: 1. Very mild cervical spine degenerative changes as above. 2. No significant foraminal or spinal stenosis at any level. The C7/T1 level is entirely normal. 3. Small annular fissures of the C4/C5, C5/C6 and C6/C7 discs. Alhaji Moffett MD Lumbar Spine CT 02/14/171852 Signed Impressions: Service Date/Time: Tuesday, February 14, 2017 19:14 - CONCLUSION: 1. Acute compression fracture involving the superior endplate of L4 with minimal retropulsion. No pedicle involvement. Shon Amanda Jr., MD Cervical Spine CT 02/14/171852 Signed Impressions: Service Date/Time: Tuesday, February 14, 2017 19:11 - CONCLUSION: 1. No fracture or dislocation. 2. Mild degenerative changes. Shon Amanda Jr., MD Objective Remarks GENERAL: This is a well-nourished, well-developed patient SKIN: No rashes, ecchymoses or lesions. Cool and dry. CARDIOVASCULAR: Regular rate and rhythm without murmurs, gallops, or rubs. RESPIRATORY: Clear to auscultation. Breath sounds equal bilaterally. No wheezes , rales, or rhonchi. GASTROINTESTINAL: Abdomen soft, non-tender, nondistended. No guarding. MUSCULOSKELETAL: Extremities without clubbing, cyanosis, or edema. No joint tenderness, effusion, or edema noted. No calf tenderness. NEUROLOGICAL: Awake and alert. Cranial nerves II through XII intact. Motor and sensory grossly within normal limits except for subjective numbness over the 4th and 5th digits of the left hand. Five out of 5 muscle strength in all muscle groups. Normal speech. A/P Problem List: (1) Lower back injury ICD Code: S39.92XA - Unspecified injury of lower back, initial encounter Status: Acute (2) Fracture of spine, lumbar, without spinal cord injury, closed ICD Code: S32.009A - Unspecified fracture of unspecified lumbar vertebra, initial encounter for closed fracture Status: Acute Assessment and Plan 41-year-old male without any significant past medical history who presents to [facility] ED with complaints of severe back pain 1 day. Severe back pain status post a fall with resultant L4 compression fracture - Patient evaluated by Dr. Nieto of neurosurgery, appreciate recommendations. TLSO ordered and needed for mobilization. - Pain management including Lortab and IV morphine with bowel regimen - Robaxin 500 mg by mouth every 8 for muscle spasms - PT eval/tx after TLSO delivered - Per neurosurgery recommendations, avoid reaching, bending and heavy lifting for 3 months. Possible left C8 radiculopathy - As stated above - Monitor for improvement Leukocytosis - Suspect reactive - Resolved Vitamin D deficiency. We will replace DVT prophylaxis - bilateral SCD/RANDAL hose -Will hold pharmacological prophylaxis pending neurosurgery evaluation Problem Qualifiers (1) Lower back injury: Qualified Codes: S39.92XA - Unspecified injury of lower back, initial encounter (2) Fracture of spine, lumbar, without spinal cord injury, closed: Qualified Codes: S32.009A - Unspecified fracture of unspecified lumbar vertebra , initial encounter for closed fracture Ludwig Schuster MD Feb 16, 2017 10:31
--- NOTE | 2017-02-16 11:09 | HHI.NSPN ---
History Interval History Mr. Morales is awake and alert resting comfortably in bed. He has complaints of back pain with movement but no complaints of lower extremity radicular pain. The left upper extremity paresthesias he was complaining yesterday however resolving slowly. Exam Results Vital Signs Date Time Temp Pulse Resp B/P (MAP) Pulse Ox O2 Delivery O2 Flow Rate FiO2 02/16/17 10:12 16 02/16/17 08:30 97 21 02/16/17 07:28 98.4 86 118/77 (91) 02/14/17 20:27 Room Air Physical Examination Patient is awake and alert oriented 3. Motor function is 5 over 5 in the upper and lower extremities. Sensory intact to primary modalities. MRI of the cervical spine and lumbar spine were performed. The cervical spine shows no evidence of disc protrusion, nerve impingement or foraminal stenosis. Lumbar spine MRI shows L4 compression fracture involving the superior half of the vertebral body. There is mild bowing of the posterior wall without canal stenosis. Right paracentral disc protrusion at L5-S1 is noted. Medical Decision Making Impression and Plan Assessment: L4 compression fracture with complaints of back pain. No radicular pain. Recommendations: Treatment options including conservative treatment with external bracing versus kyphoplasty versus temporary pedicle screw fixation were discussed with the patient. He is interested in undergoing kyphoplasty. Apparently Dr. Nieto did not give him this option yesterday and he is wanting a second opinion. We'll have Dr. Keating see the patient this afternoon and give the patient his recommendations. Julio Morales MD Feb 16, 2017 11:09
[2017-02-16] MEDS ORDERED: DEXAMETHASONE SOD PHOS 4 MG/ML VIAL IV ONE (12:00)
[2017-02-16] MEDS ORDERED: LIDOCAINE HCL 1% PF 5 ML AMPULE OTHER ONE (12:00)
[2017-02-16] MEDS ORDERED: GLYCOPYRROLATE 1 MG/5 ML SYRINGE IV PUSH ONE (12:00)
[2017-02-16] MEDS ORDERED: NEOSTIGMINE 3 MG/3 ML SYR IV ONE (12:00)
[2017-02-16] MEDS ORDERED: ONDANSETRON HCL 4 MG/2 ML VIAL IV PUSH ONE (12:00)
[2017-02-16] MEDS ORDERED: MIDAZOLAM HCL 2 MG/2 ML VIAL IV ONE (12:00)
[2017-02-16] MEDS ORDERED: PROPOFOL 200 MG/20 ML AMP IV ONE (12:00)
[2017-02-16] MEDS ORDERED: ROCURONIUM INJ 50 MG/5 ML SYRINGE IV PUSH ONE (12:00)
[2017-02-16] MEDS ORDERED: CHOLECALCIFEROL (VIT D3) 5000 UNIT CAP PO ONE (16:45)
[2017-02-16] MEDS ORDERED: ceFAZolin INJ 1,000 MG VIAL ONE (18:04)
[2017-02-16] MEDS ORDERED: ACETAMINOPHEN 1000 MG/100 ML 100 ML IV ONE (18:29)
--- NOTE | 2017-02-16 19:01 | PD.OP ---
Operative Report Date of Surgery: Feb 16, 2017 Preoperative Diagnosis: (1) Fracture of spine, lumbar, without spinal cord injury, closed L4 compression fracture Postoperative Diagnosis: (1) Fracture of spine, lumbar, without spinal cord injury, closed Same Procedure: L4 kyphoplasty Anesthesia: Gen. Surgeon: Julio Morales Hammer Runner(s): - Operation and Findings: Patient was brought to the operating room and after adequate induction of general endotracheal anesthesia was placed in prone position on chest rolls and prepped and draped in usual sterile manner. Under AP and lateral fluoroscopy the L4 vertebral body was identified and appropriate entry points were determined in the right and left paraspinal regions. Stab wounds were created and trochars were introduced percutaneously through the right and left L4 pedicles into the vertebral body under continuous AP and lateral fluoroscopic control. Once the trochars were in place the curve kyphoplasty needle was inserted and a cavity was created within the L4 vertebral body. Methylmethacrylate bone cement was then instilled throughout the L4 vertebral body with excellent filling noted and no extravasation seen. The cement was allowed to harden and the trochars were then removed. Wounds were cleansed irrigation, dressed with Steri-Strips and Telfa dry gauze dressings. Sponge and needle counts are correct at the end of the case. Blood loss was minimal and there were no complications. The patient tolerated the procedure well and was transported to recovery in satisfactory condition. Julio Morales MD Feb 16, 2017 19:01
--- NOTE | 2017-02-16 19:45 | RADRPT ---
EXAM DATE/TIME: 02/16/2017 18:47 [facility] COMPARISON: No previous studies available for comparison. INDICATIONS : L4 Kyphoplasty MEDICAL HISTORY : None. SURGICAL HISTORY : None. ENCOUNTER: Initial ACUITY: 1 day PAIN SCORE: Non-responsive. LOCATION: L4 FINDINGS: 2 magnified C-arm spot views show cement augmentation involving a lower lumbar vertebral body felt to be L4. The cement is contained within the cortical confines of the vertebral body. CONCLUSION: Limited images as detailed above. Shon Amanda Jr., MD on February 16, 2017 at 19:42 Board Certified Radiologist. This report was verified electronically.
[2017-02-16] MEDS ORDERED: DO NOT ADM ANY ANTICOAGULANT DRUGS PRN (20:00)
[2017-02-17 04:00] VITALS: BP 114/72; PULSE 78; RESP 18; TEMP 98.4; O2SAT 96
[2017-02-17] MEDS: METHOCARBAMOL 500 MG TAB PO SCH (06:26)
[2017-02-17 07:40] VITALS: BP 115/70; PULSE 63; RESP 18; TEMP 97.9; O2SAT 97
[2017-02-17] MEDS: DOCUSATE SODIUM 50 MG/SENNA 8.6 MG TAB PO SCH (08:14)
[2017-02-17] MEDS: ACETAMINOPHEN/HYDROcodone 325 MG/10 MG TAB PO PRN (08:14)
[2017-02-17] MEDS: SODIUM CHLORIDE 0.9% FLUSH 10 ML FLUSH IV FLUSH SCH (09:00)
[2017-02-17 09:15] VITALS: RESP 16
[2017-02-17 09:39] VITALS: O2SAT 97
[2017-02-17] MEDS ORDERED: INFLUENZA VIRUS VACCINE (QUADRIVALENT) 0.5 ML SYR IM ONE (10:00)
[2017-02-17] MEDS ORDERED: METH500T3 PO (10:02)
[2017-02-17] MEDS ORDERED: HYDR-3516 PO (10:05)
--- NOTE | 2017-02-17 10:08 | HHI.NSPN ---
History Interval History Postop L4 kyphoplasty. Patient doing well. Sitting up in the bed with very little back pain this morning. He has been ambulatory without difficulties. Exam Results Vital Signs Date Time Temp Pulse Resp B/P (MAP) Pulse Ox O2 Delivery O2 Flow Rate FiO2 02/17/17 09:39 97 21 02/17/17 07:40 97.9 63 18 115/70 (85) 02/17/17 06:56 Room Air 02/16/17 20:15 2 Intake and Output 02/17/17 02/17/17 02/18/17 08:00 16:00 00:00 Intake Total 120 ml Output Total 300 ml Balance -180 ml Physical Examination Neurological examination is intact. Lumbar dressings are dry Medical Decision Making Impression and Plan Assessment: L4 compression fracture status post kyphoplasty with good relief of pain. Plan: Patient clear for discharge with LSO which has been ordered. He should follow-up with Dr. Martines in 1-2 weeks for for reevaluation. Restricted activity with only walking and mild activity until cleared by Dr. Martines. Julio Morales MD Feb 17, 2017 10:08
--- NOTE | 2017-02-17 11:51 | HHI.DCPOC ---
Discharge Care Plan Diagnosis: (1) Fracture of spine, lumbar, without spinal cord injury, closed (2) Lower back injury Your Health Problems Are: Difficulty with ADL Exercise Tolerance Goals to Promote Your Health * To prevent worsening of your condition and complications * To maintain your health at the optimal level Directions to Meet Your Goals Take your medications as prescribed Follow your dietary instruction Follow activity as directed Keep your appointments as scheduled Take your immunizations and boosters as scheduled If your symptoms worsen call your PCP, if no PCP go to Urgent Care Center or Emergency Room Smoking is Dangerous to Your Health. Avoid second hand smoke Call the 24-hour hour crisis hotline for domestic abuse at Ludwig Schuster MD Feb 17, 2017 11:51
[2017-02-17] MEDS ORDERED: CHOL1000 PO (12:00)
--- NOTE | 2017-02-17 12:00 | HHI.DS ---
Discharge Summary Admission Date Feb 14, 2017 at 21:03 Discharge Date: Feb 17, 2017 Admitting Diagnosis lumbral fracture L4 (1) Lower back injury ICD Code: S39.92XA - Unspecified injury of lower back, initial encounter Diagnosis: Principal Status: Acute (2) Fracture of spine, lumbar, without spinal cord injury, closed ICD Code: S32.009A - Unspecified fracture of unspecified lumbar vertebra, initial encounter for closed fracture Diagnosis: Principal Status: Acute Procedures Kyphoplasty Brief History - From Admission Written by Korina Cartagena, acting as scribe for Dr. Schuster on 02/15/17 at 11: 27. This note was transcribed by scribe Korina Cartagena. I, Dr. Ludwig Schuster personally performed the history, physical exam, and medical decision making; and confirmed the accuracy of the information in the transcribed note. Authenticated by Dr. Ludwig Schuster on 02/15/17 at 11:42. This is a 41-year-old male without any significant past medical history who presents to [facility] ED with complaints of severe back pain 1 day. Patient reports he was walking backwards moving a washer when he tripped and fell landing on his buttocks onto the driveway. He immediately he began experiencing a severe sharp 20 out of 10 constant central back pain. He denies any head or neck injury. He does endorse improving numbness in the fourth and fifth digits of the left hand since the fall. He denies any numbness or tingling in the bilateral lower extremities. He also states that he's had urinary hesitancy and loss of sensation with urination but denies any definite incontinence. In the ED, CT lumbar spine was obtained which revealed acute compression fracture involving the superior endplate of L4 with minimal retropulsion. CT of the cervical spine was obtained which showed no fracture dislocation. Patient has already been evaluated by Dr. Nieto of neurosurgery who was ordered MRIs of both cervical and lumbar spine has discussed the possibility of surgical intervention versus conservative management. CBC/BMP: 02/15/17 0543 02/15/17 0543 Significant Findings Laboratory Tests Test 02/14/17 20:25 02/15/17 05:43 White Blood Count 13.6 TH/MM3 (4.0-11.0) Neutrophils (%) (Auto) 89.4 % (16.0-70.0) 74.5 % (16.0-70.0) Lymphocytes (%) (Auto) 6.2 % (9.0-44.0) Neutrophils # (Auto) 12.1 TH/MM3 (1.8-7.7) Lymphocytes # (Auto) 0.8 TH/MM3 (1.0-4.8) Blood Urea Nitrogen 25 MG/DL (7-18) 20 MG/DL (7-18) Estimat Glomerular Filtration Rate 84 ML/MIN (>89) 75 ML/MIN (>89) Red Blood Count 4.24 MIL/MM3 (4.50-5.90) Hematocrit 38.9 % (39.0-51.0) Mean Corpuscular Hemoglobin Concent 36.2 % (32.0-36.0) Random Glucose 110 MG/DL (74-106) 25-Hydroxy Vitamin D Total 28.9 ng/ML (30-100) Imaging Last Impressions Lumbar Spine X-Ray 02/16/17 0000 Signed Impressions: Service Date/Time: Thursday, February 16, 2017 18:47 - CONCLUSION: Limited images as detailed above. Shon Amanda Jr., MD Lumbar Spine MRI 02/15/17 0000 Signed Impressions: Service Date/Time: February 10:51 - CONCLUSION: 1. Moderate severity acute L4 compression fracture with slight retropulsion. Associated mild fracture-associated spinal and bilateral L3/L4 foraminal stenosis without evidence of nerve root impingement. 2. Small, broad and probably nonacute L4/ L5 disc protrusion with mild left foraminal stenosis. 3. Focal, probably nonacute right paracentral L4/L5 disc protrusion and appears to be impinging on the transiting right S1 nerve root within the subarticular recess. Alhaji Moffett MD Cervical Spine MRI 02/15/17 0000 Signed Impressions: Service Date/Time: February 10:51 - CONCLUSION: 1. Very mild cervical spine degenerative changes as above. 2. No significant foraminal or spinal stenosis at any level. The C7/T1 level is entirely normal. 3. Small annular fissures of the C4/C5, C5/C6 and C6/C7 discs. Alhaji Moffett MD Lumbar Spine CT [id number] Signed Impressions: Service Date/Time: Tuesday, February 14, 2017 19:14 - CONCLUSION: 1. Acute compression fracture involving the superior endplate of L4 with minimal retropulsion. No pedicle involvement. Shon Amanda Jr., MD Cervical Spine CT [id number]/14/[id number] Signed Impressions: Service Date/Time: Tuesday, February 14, 2017 19:11 - CONCLUSION: 1. No fracture or dislocation. 2. Mild degenerative changes. Shon Amanda Jr., MD PE at Discharge GENERAL: This is a well-nourished, well-developed patient SKIN: No rashes, ecchymoses or lesions. Cool and dry. CARDIOVASCULAR: Regular rate and rhythm without murmurs, gallops, or rubs. RESPIRATORY: Clear to auscultation. Breath sounds equal bilaterally. No wheezes , rales, or rhonchi. GASTROINTESTINAL: Abdomen soft, non-tender, nondistended. No guarding. MUSCULOSKELETAL: Extremities without clubbing, cyanosis, or edema. No joint tenderness, effusion, or edema noted. No calf tenderness. NEUROLOGICAL: Awake and alert. Cranial nerves II through XII intact. Motor and sensory grossly within normal limits except for subjective numbness over the 4th and 5th digits of the left hand. Five out of 5 muscle strength in all muscle groups. Normal speech. Hospital Course 41-year-old male without any significant past medical history who presents to [facility] ED with complaints of severe back pain 1 day. Severe back pain status post a fall with resultant L4 compression fracture. Improved status post kyphoplasty. Continue pain management with Lortab and robaxin, LSO brace and light activity. Restrictions dw pt and Possible left C8 radiculopathy. Improved Leukocytosis - Suspect reactive - Resolved Vitamin D deficiency. We will replace DVT prophylaxis - bilateral SCD/RANDAL hose Pt Condition on Discharge: Stable Discharge Disposition: Discharge Home Discharge Time: > 30 minutes Discharge Instructions DIET: Follow Instructions for: As Tolerated, No Restrictions Activities you can perform: Regular-No Restrictions Activities to Avoid: Contact Sports, Lifting/Bending, Strenuous Activity, Driving Other Activity Instructions: Activity restrictions per neurosurgery- Restricted activity with only walking and mild activity until cleared by Dr. Martines. Follow up Referrals: Appointment for Follow Up @ [facility]i PCP Follow-up - 1 Week New Medications: Walker with Front Wheels (Walker with Front Wheels) 1 Mis Mis EA .ROUTE DIRECTED, #1 0 Refills Cholecalciferol (Gnp Vitamin D3 Extra Stre) 1,000 Unit Tab 1000 UNITS PO DAILY for Vitamin D deficiency, #30 TAB Hydrocodone/Acetaminophen (Hydrocodone-Acetamin 5-325 mg) 5 Mg-325 Mg Tablet 1 TAB PO Q4H PRN for PAIN SCALE 3 TO 5 for 7 Days, #42 TAB 1 tab q 4 hr prn pain Methocarbamol (Methocarbamol) 500 Mg Tab 500 MG PO Q8HR PRN for MUSCLE SPASM, #30 TAB i tab q 8 hr prn mm spasm Continued Medications: Minocycline (Minocycline) 50 Mg Cap 50 MG PO BID for Mgmt Bacterial Infection, CAP 0 Refills Ludwig Schuster MD Feb 17, 2017 12:00
[2017-02-24] MEDS ORDERED: CHOLECALCIFEROL (VIT D3) 1000 UNIT TAB PO SCH (09:00)
== END 2017-02-17 15:48 | disposition home or self-care (01) ==
LOC: NEPC 18:13 → NEDA 21:03 → NEPFCDU 22:16 → N06B 02-16 15:02 → N06A 02-16 20:14
PROVIDERS: ADMIT Internal Medicine; ATTEND Internal Medicine
DX: M48.56XA Collapsed vertebra, not elsewhere classified, lumbar region, initial encounter for fracture (principal); R39.11 Hesitancy of micturition; M51.26 Other intervertebral disc displacement, lumbar region; M48.061 Spinal stenosis, lumbar region without neurogenic claudication; M54.12 Radiculopathy, cervical region; M54.2 Cervicalgia; D72.829 Elevated white blood cell count, unspecified; E55.9 Vitamin D deficiency, unspecified; W01.0XXA Fall on same level from slipping, tripping and stumbling without subsequent striking against object, initial encounter; Z23 Encounter for immunization
CPT/HCPCS: 01936; 22514; 72100; 72125; 72131; 72141; 72148; 80048; 80053; 82306; 85025; 85610; 90686; 96361; 96372; 96374; 96375; 96376; 97163; 97164; 99285; G0378; G8987; G8988; J0131; J0690; J1100; J2250; J2270; J2405; J2710; J3010; J7030; L0200; L0484; Q2038